=== PATIENT | male | born 1965 ===

== ENCOUNTER 2024-09-25 06:23 | Day surgery (SDC) | payer OTHER, SELFPAY | END 2024-09-25 11:51 | disposition home or self-care (01) | LOC: GI 06:23 | PROVIDERS: ATTENDING PHYSICIAN Specialist | DX: Z12.11 Encounter for screening for malignant neoplasm of colon (principal); Z86.0101 Personal history of adenomatous and serrated colon polyps; K64.8 Other hemorrhoids; K57.30 Diverticulosis of large intestine without perforation or abscess without bleeding | CPT/HCPCS: G0105 ==